=== PATIENT | male | born 1990 | race African-American/Black ===

== ENCOUNTER 2016-05-29 13:27 | Emergency (ER) | payer OTHER ==
[2016-05-29] MEDS ORDERED: GASTROGRAFIN SOLUTION 30ML (Q9963) As Ordered ONE (14:32)
[2016-05-29 14:38] LABS: BASO % 0.3 % (0.0-1.0); EOS # 0.4 K/mm3 (0.0-0.50); EOS % 6.4 % (0.0-3.0); LARGE UNSTAINED CELL # 0.1 K/mm3 (0.0-0.4); LARGE UNSTAINED CELL % 1.4 % (0.0-4.0); LYMPH # 1.8 K/mm3 (1.5-6.5); LYMPH % 31.3 % (24.0-44.0); MEAN CORPUSCULAR HGB CONC 34.4 g/dl (32.0-36.5); MEAN CORPUSCULAR VOLUME 78.5 fl (80.0-96.0); MONO # 0.3 K/mm3 (0.0-0.8); MONO % 5.8 % (0.0-5.0); NEUTROPHILS # 3.1 K/mm3 (1.8-7.7); NEUTROPHILS % 54.8 % (36.0-66.0); PLATELET COUNT, AUTOMATED 239 k/mm3 (150-450); RED CELL DISTRIBUTION WIDTH 13.8 % (11.5-14.5); WHITE BLOOD COUNT 5.6 K/mm3 (4.0-10.0)
[2016-05-29 15:00] LABS: ALBUMIN 4.3 GM/DL (3.2-5.2); ALBUMIN/GLOBULIN RATIO 1.13 (1.00-1.93); ALKALINE PHOSPHATASE 111 U/L (45-117); ALT/SGPT 47 U/L (12-78); ANION GAP 8 MEQ/L (8-16); AST/SGOT 35 U/L (15-37); BILIRUBIN,DIRECT < 0.1 MG/DL (0.0-0.2); BILIRUBIN,TOTAL 0.5 MG/DL (0.2-1.0); BLOOD UREA NITROGEN 12 MG/DL (7-18); CARBON DIOXIDE LEVEL 30 MEQ/L (21-32); CHLORIDE LEVEL 103 MEQ/L (98-107); CREATININE FOR GFR 1.19 MG/DL (0.70-1.30); GLOMERULAR FILTRATION RATE > 60.0 (>60); GLUCOSE, FASTING 88 MG/DL (70-105); POTASSIUM SERUM 3.7 MEQ/L (3.5-5.1); SODIUM LEVEL 141 MEQ/L (136-145); TOTAL PROTEIN 8.1 GM/DL (6.4-8.2)
[2016-05-29] MEDS ORDERED: ISOVUE-370 76% 100ML VIAL (Q9967) As Ordered ONE (15:26)
--- NOTE | 2016-05-29 16:10 | REP ---
Clinical: Right lower quadrant pain. Technique: Axial contrast enhanced images from the lung bases to the pubic symphysis using oral and 100 ml Isovue 370 intravenous contrast material with coronal and sagittal re-formations. Findings: Lung bases clear. Visualized heart and pericardium normal. Liver, spleen, pancreas, gallbladder, bilateral adrenal glands and kidneys are normal. The enteric system is without obstruction or acute inflammatory process. Normal terminal ileum and appendix identified in the right lower quadrant. Moderate fecal stasis cannot be excluded. Pelvis demonstrates normal bladder and age appropriate prostate/seminal vesicles. No ascites. No free air. No adenopathy. Abdominal aorta without aneurysm. Surrounding musculoskeletal structures intact. Impression: Possible mild fecal stasis. Normal appendix. No free fluid. No acute intra-abdominal or pelvic pathology appreciated. Signed by Skip Moraes MD 05/29/2016 04:02 P
--- NOTE | 2016-05-29 16:19 | EDDOCDS ---
Physician Documentation [facility] Name: Ace Tran Age: 25 yrs Sex: Male : 1990 Arrival Date: 05/29/2016 Time: 13:27 Bed I1 / M1 Private MD: YSABEL Barton Disposition: 05/29/16 16:09 Discharged to Home/Self Care. Impression: Lower abdominal pain, unspecified - RLQ, Nausea with vomiting, unspecified, Diarrhea, unspecified, Acute upper respiratory infection, unspecified. - Condition is Stable. - Discharge Instructions: Abdominal Pain, Adult, Diarrhea, Nausea and Vomiting, Upper Respiratory Infection, Adult. - Prescriptions for Reglan 10 mg Oral Tablet - take 1 tablet by ORAL route every 6 hours As needed take 30 minutes before meals and at bedtime; 30 tablet. - Medication Reconciliation, Local Pharmacy Hours form. - Follow up: Emergency Department; When: As needed; Reason: Worsening of conditions. Follow up: YSABEL Barton; When: 2 - 3 days; Reason: Wound/Symptom Recheck, Recheck today's complaints, Continuance of care. - Problem is new. - Symptoms have improved. Historical: - Allergies: no known allergies; - Home Meds: 1. Zofran (as hydrochloride) 4 mg Oral tab 3 times per day (Last dose: 05/27/2016) - PMHx: none; - PSHx: none; - Social history: Smoking status: Patient states was never smoker of tobacco. No barriers to communication noted, The patient speaks fluent Uzbek. - Family history: Not pertinent. - : The pt / caregiver states he / she is not on anticoagulants. Home medication list is obtained from the patient. - Exposure Risk Screening:: None identified. Vital Signs: 05/29 13:31 BP 144 / 72; Pulse 92; Resp 18; Temp 98.3; Pulse Ox 99% ; Weight 98.43 kg / 217 lbs; elp Height 6 ft. 3 in. (190.50 cm); 16:16 BP 136 / 77; Pulse 80; Resp 16; Temp 97.3; jmk 13:31 Body Mass Index 27.12 (98.43 kg, 190.50 cm) elp MDM: 14:08 Obtain sample by nasopharyngeal swab ordered. dt4 14:08 NS 0.9% 1000 ml IV at bolus once ordered. dt4 14:08 IV Saline Lock ordered. dt4 14:08 Undress patient appropriately for examination ordered. dt4 14:08 Metoclopramide 20 mg IV at 80 mg/hr once over 15 mins ordered. dt4 14:08 -Influenza A&B Rapid Antigen - Nose Ordered. EDMS 14:08 Basic Metabolic Profile Ordered. EDMS 14:08 CBC with Diff Ordered. EDMS 14:08 Lipase Ordered. EDMS 14:08 Liver Profile Ordered. EDMS 14:08 CT ABD & PELVIS: IV and Oral Contrast Ordered. EDMS 14:09 NOTHING BY MOUTH+DIET ordered. EDMS 14:15 Financial registration complete. lg 14:25 [facility] Payment Agreement was scanned into Mob[employer] and attached to record. lg 14:39 Diatrizoate Meglumine & Sodium Liquid 10 ml PO once; mix in 290cc of water ordered. jmk Administered Medications: 14:36 Drug: NS 0.9% 1000 ml Route: IV; Rate: bolus; Site: right antecubital; k 14:36 Drug: Metoclopramide 20 mg [metoclopramide 5 mg/mL injection solution] Route: IV; Rate: jmk 80 mg/hr; Infused Over: 15 mins; Site: right antecubital; 14:39 Drug: Diatrizoate Meglumine & Sodium 10 ml [diatrizoate meglumine and diat.sodium 66 jmk %-10 % oral solution (10 mL)] Route: PO; Signatures: Dispatcher [employer] EDOR Wyatt Dos Santos RN RN jmk Peters, Mary, RN RN mcp Ganter, LoriLee, Reg Reg lg Eusebia Couch PA-C PA-C dt4 The chart was reviewed and I authenticate all verbal orders and agree with the evaluation and treatment provided.Attachments: 14:25 [facility] Payment Agreement lg MTDD
--- NOTE | 2016-05-29 16:20 | EDDOCDS ---
Nurse's Notes [facility] Name: Ace Tran Age: 25 yrs Sex: Male : 1990 Arrival Date: 05/29/2016 Time: 13:27 Bed I1 / M1 Private MD: YSABEL Barton Diagnosis: Lower abdominal pain, unspecified-RLQ;Nausea with vomiting, unspecified;Diarrhea, unspecified;Acute upper respiratory infection, unspecified Presentation: 05/29 13:38 Presenting complaint: Patient states: Sick since last week--vomiting, diarrhea, nausea. [facility] Adult Sepsis Screening: The patient does not have new or worsening altered mentation. Patient's respiratory rate is less than 22. Systolic blood pressure is greater than 100. Patient has a qSOFA score of 0- Negative Sepsis Screen. Suicide/Homicide risk assessment- the patient denies having any suicidal and/or homicidal ideations and does not present with any other emotional, behavioral or mental health complaints. Status: The patient is an active duty route service manager. Transition of care: patient was not received from another setting of care. 13:38 Acuity: WILLIAM Level 4 [facility] 13:38 Method Of Arrival: Walkin/Carried/Asstd [facility] Triage Assessment: 13:40 General: Appears ill, Behavior is cooperative. Pain: Denies pain. HIV screening NA for [facility] this visit Offered previously. Neurological: No deficits noted. Respiratory: Airway is patent Respiratory effort is even, unlabored. GI: Reports diarrhea, nausea, vomiting. Derm: Skin is pink, warm & dry. Historical: - Allergies: no known allergies; - Home Meds: 1. Zofran (as hydrochloride) 4 mg Oral tab 3 times per day (Last dose: 05/27/2016) - PMHx: none; - PSHx: none; - Social history: Smoking status: Patient states was never smoker of tobacco. No barriers to communication noted, The patient speaks fluent Vietnamese. - Family history: Not pertinent. - : The pt / caregiver states he / she is not on anticoagulants. Home medication list is obtained from the patient. - Exposure Risk Screening:: None identified. Screenin:37 Screening information is obtained from the patient. Fall risk: No risks identified. jmk Assistance ADL's: requires no assistance with activities of daily living. Abuse/DV Screen: The patient / caregiver reports he/she is: not in a situation that causes fear, pain or injury. Nutritional screening: No deficits noted. Advance Directives: Currently, there is no health care proxy. There is no active DNR order. There is no living will. There is no Power of Hostess Host. Advance directive information has not previously been placed in an [facility] medical record. home support is adequate. Assessment: 14:37 General: Appears in no apparent distress. Cardiovascular: No deficits noted. Capillary jmk refill < 3 seconds. Respiratory: No deficits noted. Airway is patent Respiratory effort is even, unlabored, Respiratory pattern is regular, Breath sounds are clear. GI: Abdomen is flat, non- distended Bowel sounds present X 4 quads. Abd is soft and non tender X 4 quads. without increased pain with palp. diffusely tender. 16:16 General: Appears without vomiting since arrival . has accommodated oral contrast jmk without difficulty. receptive to discharge. Vital Signs: 13:31 BP 144 / 72; Pulse 92; Resp 18; Temp 98.3; Pulse Ox 99% ; Weight 98.43 kg; Height 6 ft. elp 3 in. (190.50 cm); 16:16 BP 136 / 77; Pulse 80; Resp 16; Temp 97.3; jmk 13:31 Body Mass Index 27.12 (98.43 kg, 190.50 cm) [facility] Vitals: 13:31 Log In Time: May 29, 2016 at 13:27. [facility] ED Course: 13:31 Patient visited by Yana Mullen PCA. elp 13:31 Oralia Sonia is Private Physician. elp 13:31 Patient visited by Yana Mullen PCA. elp 13:31 Patient moved to Waiting elp 13:32 Patient moved to Pre RCE elp 13:39 Triage Initiated mcp 13:40 Patient visited by Sarika Malcolm RN. mcp 13:42 Patient moved to Triage 1 mcp 13:45 [facility] dt4 13:45 Mai Mims MD is Attending Physician. dt4 13:45 Patient visited by Eusebia Couch PA-C. dt4 14:07 Patient moved to I1 / M1 [facility] 14:24 Patient name changed from Gnosticist\S\\S\Chelsea\S\ to Gnosticist\S\ \S\Chelsea. EDMS 14:25 [facility] Payment Agreement was scanned into [employer] and attached to record. lg 14:37 The patient / caregiver is instructed regarding the plan of care and ED course. jmk 14:37 Inserted saline lock: 20 gauge in right antecubital area. jmk 14:41 Patient visited by Carlota Trejo RN. ms18 15:43 Patient visited by Jojo Blandon. nb2 16:08 Oralia [facility] is Referral Physician. dt4 16:16 Discontinued lock intact, bleeding controlled, pressure dressing applied, No jmk redness/swelling at site. No procedures done that require assistance. Administered Medications: 14:36 Drug: NS 0.9% 1000 ml Route: IV; Rate: bolus; Site: right antecubital; jmk 14:36 Drug: Metoclopramide 20 mg [metoclopramide 5 mg/mL injection solution] Route: IV; Rate: jmk 80 mg/hr; Infused Over: 15 mins; Site: right antecubital; 14:39 Drug: Diatrizoate Meglumine & Sodium 10 ml [diatrizoate meglumine and diat.sodium 66 jmk %-10 % oral solution (10 mL)] Route: PO; Intake: 16:16 IV: 1000.00ml (NS); Total: 1000.00ml. jmk Order Results: Lab Order: -Influenza A&B Rapid Antigen - Nose; SPEC'M 05/29/16 14:18 Test: INFLUENZA A RAPID SCR by ICA; Value: INFLUENZA A RESULTS NEGATIVE; Status: F Test: INFLUENZA A RAPID SCR by ICA; Value: Comments:; Status: F Test: INFLUENZA B RAPID SCR by ICA; Value: INFLUENZA B RESULTS NEGATIVE; Status: F Test Note: ; The Influenza test is a direct rapid immunoassay for the qualitative detection of Influenza viral antigen. Cell culture (Viral Culture) testing should be considered to confirm NEGATIVE results and to assist in detecting other viruses that can provide similar clinical symptoms. Please contact the lab within 24 hours ([phone]) if confirmatory testing is desired. Lab Order: Basic Metabolic Profile; SPEC'M 05/29/16 14:18 Test: GLUCOSE, FASTING; Value: 88; Range: 70-105; Units: MG/DL; Status: F Test: BLOOD UREA NITROGEN; Value: 12; Range: 7-18; Units: MG/DL; Status: F Test: CREATININE FOR GFR; Value: 1.19; Range: 0.70-1.30; Units: MG/DL; Status: F Test: GLOMERULAR FILTRATION RATE; Value: > 60.0; Range: >60; Status: F Test: SODIUM LEVEL; Value: 141; Range: 136-145; Units: MEQ/L; Status: F Test: POTASSIUM SERUM; Value: 3.7; Range: 3.5-5.1; Units: MEQ/L; Status: F Test: CHLORIDE LEVEL; Value: 103; Range: 98-107; Units: MEQ/L; Status: F Test: CARBON DIOXIDE LEVEL; Value: 30; Range: 21-32; Units: MEQ/L; Status: F Test: ANION GAP; Value: 8; Range: 8-16; Units: MEQ/L; Status: F Test: CALCIUM LEVEL; Value: 9.0; Range: 8.5-10.1; Units: MG/DL; Status: F Test Note: ; Units are mL/min/1.73 m2 Chronic Kidney Disease Staging per NKF: Stage I & II GFR >=60 Normal to Mildly Decreased Stage III GFR 30-59 Moderately Decreased Stage IV GFR 15-29 Severely Decreased Stage V GFR <15 Very Little GFR Left ESRD GFR <15 on OIL G[employer] PIPE TESTER Lab Order: CBC with Diff; SPEC'M 05/29/16 14:18 Test: WHITE BLOOD COUNT; Value: 5.6; Range: 4.0-10.0; Units: K/mm3; Status: F Test: RED BLOOD COUNT; Value: 5.37; Range: 4.30-6.10; Units: M/mm3; Status: F Test: HEMOGLOBIN; Value: 14.5; Range: 14.0-18.0; Units: g/dl; Status: F Test: HEMATOCRIT; Value: 42.2; Range: 42.0-52.0; Units: %; Status: F Test: MEAN CORPUSCULAR VOLUME; Value: 78.5; Range: 80.0-96.0; Abnormal: Below low normal; Units: fl; Status: F Test: MEAN CORPUSCULAR HEMOGLOBIN; Value: 27.0; Range: 27.0-33.0; Units: pg; Status: F Test: MEAN CORPUSCULAR HGB CONC; Value: 34.4; Range: 32.0-36.5; Units: g/dl; Status: F Test: RED CELL DISTRIBUTION WIDTH; Value: 13.8; Range: 11.5-14.5; Units: %; Status: F Test: PLATELET COUNT, AUTOMATED; Value: 239; Range: 150-450; Units: k/mm3; Status: F Test: NEUTROPHILS %; Value: 54.8; Range: 36.0-66.0; Units: %; Status: F Test: LYMPH %; Value: 31.3; Range: 24.0-44.0; Units: %; Status: F Test: MONO %; Value: 5.8; Range: 0.0-5.0; Abnormal: Above high normal; Units: %; Status: F Test: EOS %; Value: 6.4; Range: 0.0-3.0; Abnormal: Above high normal; Units: %; Status: F Test: BASO %; Value: 0.3; Range: 0.0-1.0; Units: %; Status: F Test: LARGE UNSTAINED CELL %; Value: 1.4; Range: 0.0-4.0; Units: %; Status: F Test: NEUTROPHILS #; Value: 3.1; Range: 1.8-7.7; Units: K/mm3; Status: F Test: LYMPH #; Value: 1.8; Range: 1.5-6.5; Units: K/mm3; Status: F Test: MONO #; Value: 0.3; Range: 0.0-0.8; Units: K/mm3; Status: F Test: EOS #; Value: 0.4; Range: 0.0-0.50; Units: K/mm3; Status: F Test: BASO #; Value: 0.0; Range: 0.0-0.2; Units: K/mm3; Status: F Test: LARGE UNSTAINED CELL #; Value: 0.1; Range: 0.0-0.4; Units: K/mm3; Status: F Lab Order: Lipase; SPEC'M 05/29/16 14:18 Test: LIPASE; Value: 92; Range: 73-393; Units: U/L; Status: F Lab Order: Liver Profile; SPEC'M 05/29/16 14:18 Test: AST/SGOT; Value: 35; Range: 15-37; Units: U/L; Status: F Test: ALT/SGPT; Value: 47; Range: 12-78; Units: U/L; Status: F Test: ALKALINE PHOSPHATASE; Value: 111; Range: 45-117; Units: U/L; Status: F Test: BILIRUBIN,TOTAL; Value: 0.5; Range: 0.2-1.0; Units: MG/DL; Status: F Test: BILIRUBIN,DIRECT; Value: < 0.1; Range: 0.0-0.2; Units: MG/DL; Status: F Test: TOTAL PROTEIN; Value: 8.1; Range: 6.4-8.2; Units: GM/DL; Status: F Test: ALBUMIN; Value: 4.3; Range: 3.2-5.2; Units: GM/DL; Status: F Test: ALBUMIN/GLOBULIN RATIO; Value: 1.13; Range: 1.00-1.93; Status: F Outcome: 16:09 Discharge ordered by Provider. dt4 16:16 Discharge Assessment: Patient awake, alert and oriented x 3. No cognitive and/or k functional deficits noted. Patient verbalized understanding of disposition instructions. patient administered narcotics - no. The following High Risk Discharge criteria are identified: None. Discharged to home ambulatory. Condition: good. Discharge instructions given to patient, Instructed on discharge instructions, follow up and referral plans. medication usage, Demonstrated understanding of instructions, medications, Pt was receptive of discharge instructions/ teaching. CT Study completed. Property :Personal belongings accompany Pt. 16:18 Patient left the ED. anahy Signatures: Dispatcher [employer] EDWyatt Randall RN RN jmk Peters, Mary, RN RN mcp Ganter, LoriLee, Catalino Reg lg Yana Mullen, DAVON NET WPF DEVELOPER Eusebia Guzman, PA-C PA-C dt4 Carlota Trejo RN RN ms18 Jojo Blandon2 MTDD
--- NOTE | 2016-05-31 17:19 | EDDOCDS ---
Physician Documentation [facility] Name: Ace Tran Age: 25 yrs Sex: Male : 1990 Arrival Date: 05/29/2016 Time: 13:27 Bed I1 / M1 Private MD: YSABEL Barton Disposition: 05/29/16 16:09 Discharged to Home/Self Care. Impression: Lower abdominal pain, unspecified - RLQ, Nausea with vomiting, unspecified, Diarrhea, unspecified, Acute upper respiratory infection, unspecified. - Condition is Stable. - Discharge Instructions: Abdominal Pain, Adult, Diarrhea, Nausea and Vomiting, Upper Respiratory Infection, Adult. - Prescriptions for Reglan 10 mg Oral Tablet - take 1 tablet by ORAL route every 6 hours As needed take 30 minutes before meals and at bedtime; 30 tablet. - Medication Reconciliation, Local Pharmacy Hours form. - Follow up: Emergency Department; When: As needed; Reason: Worsening of conditions. Follow up: YSABEL Barton; When: 2 - 3 days; Reason: Wound/Symptom Recheck, Recheck today's complaints, Continuance of care. - Problem is new. - Symptoms have improved. Historical: - Allergies: no known allergies; - Home Meds: 1. Zofran (as hydrochloride) 4 mg Oral tab 3 times per day (Last dose: 05/27/2016) - PMHx: none; - PSHx: none; - Social history: Smoking status: Patient states was never smoker of tobacco. No barriers to communication noted, The patient speaks fluent Pashto. - Family history: Not pertinent. - : The pt / caregiver states he / she is not on anticoagulants. Home medication list is obtained from the patient. - Exposure Risk Screening:: None identified. Vital Signs: 05/29 13:31 BP 144 / 72; Pulse 92; Resp 18; Temp 98.3; Pulse Ox 99% ; Weight 98.43 kg / 217 lbs; elp Height 6 ft. 3 in. (190.50 cm); 16:16 BP 136 / 77; Pulse 80; Resp 16; Temp 97.3; jmk 13:31 Body Mass Index 27.12 (98.43 kg, 190.50 cm) elp MDM: 14:08 Obtain sample by nasopharyngeal swab ordered. dt4 14:08 NS 0.9% 1000 ml IV at bolus once ordered. dt4 14:08 IV Saline Lock ordered. dt4 14:08 Undress patient appropriately for examination ordered. dt4 14:08 Metoclopramide 20 mg IV at 80 mg/hr once over 15 mins ordered. dt4 14:08 -Influenza A&B Rapid Antigen - Nose Ordered. EDMS 14:08 Basic Metabolic Profile Ordered. EDMS 14:08 CBC with Diff Ordered. EDMS 14:08 Lipase Ordered. EDMS 14:08 Liver Profile Ordered. EDMS 14:08 CT ABD & PELVIS: IV and Oral Contrast Ordered. EDMS 14:09 NOTHING BY MOUTH+DIET ordered. EDMS 14:15 Financial registration complete. 14:25 [facility] Payment Agreement was scanned into [employer] and attached to record. 14:39 Diatrizoate Meglumine & Sodium Liquid 10 ml PO once; mix in 290cc of water ordered. [facility] 05/30 17:41 T-Sheet-- Draft Copy was scanned into Cy[employer] and attached to record. klr Administered Medications: 05/29 14:36 Drug: NS 0.9% 1000 ml Route: IV; Rate: bolus; Site: right antecubital; jmk 14:36 Drug: Metoclopramide 20 mg [metoclopramide 5 mg/mL injection solution] Route: IV; Rate: jmk 80 mg/hr; Infused Over: 15 mins; Site: right antecubital; 14:39 Drug: Diatrizoate Meglumine & Sodium 10 ml [diatrizoate meglumine and diat.sodium 66 jmk %-10 % oral solution (10 mL)] Route: PO; Signatures: Dispatcher [facility] Wyatt Dos Santos RN RN jmk Peters, Mary, RN RN mcp Ganter, LoriLee, Catalino Reg Eusebia Couch PA-C PA-C dt4 Elaine Lanza The chart was reviewed and I authenticate all verbal orders and agree with the evaluation and treatment provided.Attachments: 14:25 [facility] Payment Agreement 05/30 17:41 T-Sheet-- Draft Copy klr Chart Complete MTDD
--- NOTE | 2016-05-31 17:19 | EDDOCDS ---
Physician Documentation [facility] Name: Ace Tran Age: 25 yrs Sex: Male : 1990 Arrival Date: 05/29/2016 Time: 13:27 Bed I1 / M1 Private MD: YSABEL Barton Disposition: 05/29/16 16:09 Discharged to Home/Self Care. Impression: Lower abdominal pain, unspecified - RLQ, Nausea with vomiting, unspecified, Diarrhea, unspecified, Acute upper respiratory infection, unspecified. - Condition is Stable. - Discharge Instructions: Abdominal Pain, Adult, Diarrhea, Nausea and Vomiting, Upper Respiratory Infection, Adult. - Prescriptions for Reglan 10 mg Oral Tablet - take 1 tablet by ORAL route every 6 hours As needed take 30 minutes before meals and at bedtime; 30 tablet. - Medication Reconciliation, Local Pharmacy Hours form. - Follow up: Emergency Department; When: As needed; Reason: Worsening of conditions. Follow up: YSABEL Barton; When: 2 - 3 days; Reason: Wound/Symptom Recheck, Recheck today's complaints, Continuance of care. - Problem is new. - Symptoms have improved. Historical: - Allergies: no known allergies; - Home Meds: 1. Zofran (as hydrochloride) 4 mg Oral tab 3 times per day (Last dose: 05/27/2016) - PMHx: none; - PSHx: none; - Social history: Smoking status: Patient states was never smoker of tobacco. No barriers to communication noted, The patient speaks fluent Uzbek. - Family history: Not pertinent. - : The pt / caregiver states he / she is not on anticoagulants. Home medication list is obtained from the patient. - Exposure Risk Screening:: None identified. Vital Signs: 05/29 13:31 BP 144 / 72; Pulse 92; Resp 18; Temp 98.3; Pulse Ox 99% ; Weight 98.43 kg / 217 lbs; elp Height 6 ft. 3 in. (190.50 cm); 16:16 BP 136 / 77; Pulse 80; Resp 16; Temp 97.3; jmk 13:31 Body Mass Index 27.12 (98.43 kg, 190.50 cm) elp MDM: 14:08 Obtain sample by nasopharyngeal swab ordered. dt4 14:08 NS 0.9% 1000 ml IV at bolus once ordered. dt4 14:08 IV Saline Lock ordered. dt4 14:08 Undress patient appropriately for examination ordered. dt4 14:08 Metoclopramide 20 mg IV at 80 mg/hr once over 15 mins ordered. dt4 14:08 -Influenza A&B Rapid Antigen - Nose Ordered. EDMS 14:08 Basic Metabolic Profile Ordered. EDMS 14:08 CBC with Diff Ordered. EDMS 14:08 Lipase Ordered. EDMS 14:08 Liver Profile Ordered. EDMS 14:08 CT ABD & PELVIS: IV and Oral Contrast Ordered. EDMS 14:09 NOTHING BY MOUTH+DIET ordered. EDMS 14:15 Financial registration complete. 14:25 [facility] Payment Agreement was scanned into [employer] and attached to record. 14:39 Diatrizoate Meglumine & Sodium Liquid 10 ml PO once; mix in 290cc of water ordered. [facility] 05/30 17:41 T-Sheet-- Draft Copy was scanned into [employer] and attached to record. klr Administered Medications: 05/29 14:36 Drug: NS 0.9% 1000 ml Route: IV; Rate: bolus; Site: right antecubital; jmk 14:36 Drug: Metoclopramide 20 mg [metoclopramide 5 mg/mL injection solution] Route: IV; Rate: jmk 80 mg/hr; Infused Over: 15 mins; Site: right antecubital; 14:39 Drug: Diatrizoate Meglumine & Sodium 10 ml [diatrizoate meglumine and diat.sodium 66 jmk %-10 % oral solution (10 mL)] Route: PO; Signatures: Dispatcher [facility] Wyatt Dos Santos RN RN jmk Peters, Mary, RN RN mcp Ganter, LoriLee, Catalino Reg Eusebia Couch PA-C PA-C dt4 Elaine Lanza The chart was reviewed and I authenticate all verbal orders and agree with the evaluation and treatment provided.Attachments: 14:25 [facility] Payment Agreement 05/30 17:41 T-Sheet-- Draft Copy klr Chart Complete MTDD
--- NOTE | 2016-05-31 17:20 | EDDOCDS ---
Nurse's Notes [facility] Name: Ace Tran Age: 25 yrs Sex: Male : 1990 Arrival Date: 05/29/2016 Time: 13:27 Bed I1 / M1 Private MD: YSABEL Barton Diagnosis: Lower abdominal pain, unspecified-RLQ;Nausea with vomiting, unspecified;Diarrhea, unspecified;Acute upper respiratory infection, unspecified Presentation: 05/29 13:38 Presenting complaint: Patient states: Sick since last week--vomiting, diarrhea, nausea. [facility] Adult Sepsis Screening: The patient does not have new or worsening altered mentation. Patient's respiratory rate is less than 22. Systolic blood pressure is greater than 100. Patient has a qSOFA score of 0- Negative Sepsis Screen. Suicide/Homicide risk assessment- the patient denies having any suicidal and/or homicidal ideations and does not present with any other emotional, behavioral or mental health complaints. Status: The patient is an active duty creative services designer. Transition of care: patient was not received from another setting of care. 13:38 Acuity: WILLIAM Level 4 [facility] 13:38 Method Of Arrival: Walkin/Carried/Asstd [facility] Triage Assessment: 13:40 General: Appears ill, Behavior is cooperative. Pain: Denies pain. HIV screening NA for [facility] this visit Offered previously. Neurological: No deficits noted. Respiratory: Airway is patent Respiratory effort is even, unlabored. GI: Reports diarrhea, nausea, vomiting. Derm: Skin is pink, warm & dry. Historical: - Allergies: no known allergies; - Home Meds: 1. Zofran (as hydrochloride) 4 mg Oral tab 3 times per day (Last dose: 05/27/2016) - PMHx: none; - PSHx: none; - Social history: Smoking status: Patient states was never smoker of tobacco. No barriers to communication noted, The patient speaks fluent Nepali. - Family history: Not pertinent. - : The pt / caregiver states he / she is not on anticoagulants. Home medication list is obtained from the patient. - Exposure Risk Screening:: None identified. Screenin:37 Screening information is obtained from the patient. Fall risk: No risks identified. jmk Assistance ADL's: requires no assistance with activities of daily living. Abuse/DV Screen: The patient / caregiver reports he/she is: not in a situation that causes fear, pain or injury. Nutritional screening: No deficits noted. Advance Directives: Currently, there is no health care proxy. There is no active DNR order. There is no living will. There is no Power of Beverage Distiller. Advance directive information has not previously been placed in an [facility] medical record. home support is adequate. Assessment: 14:37 General: Appears in no apparent distress. Cardiovascular: No deficits noted. Capillary jmk refill < 3 seconds. Respiratory: No deficits noted. Airway is patent Respiratory effort is even, unlabored, Respiratory pattern is regular, Breath sounds are clear. GI: Abdomen is flat, non- distended Bowel sounds present X 4 quads. Abd is soft and non tender X 4 quads. without increased pain with palp. diffusely tender. 16:16 General: Appears without vomiting since arrival . has accommodated oral contrast jmk without difficulty. receptive to discharge. Vital Signs: 13:31 BP 144 / 72; Pulse 92; Resp 18; Temp 98.3; Pulse Ox 99% ; Weight 98.43 kg; Height 6 ft. elp 3 in. (190.50 cm); 16:16 BP 136 / 77; Pulse 80; Resp 16; Temp 97.3; jmk 13:31 Body Mass Index 27.12 (98.43 kg, 190.50 cm) [facility] Vitals: 13:31 Log In Time: May 29, 2016 at 13:27. [facility] ED Course: 13:31 Patient visited by Yana Mullen PCA. elp 13:31 Oralia Sonia is Private Physician. elp 13:31 Patient visited by Yana Mullen PCA. elp 13:31 Patient moved to Waiting elp 13:32 Patient moved to Pre RCE elp 13:39 Triage Initiated mcp 13:40 Patient visited by Sarika Malcolm RN. mcp 13:42 Patient moved to Triage 1 mcp 13:45 [facility] dt4 13:45 Mai Mims MD is Attending Physician. dt4 13:45 Patient visited by Eusebia Couch PA-C. dt4 14:07 Patient moved to I1 / M1 [facility] 14:24 Patient name changed from Worship\S\\S\Chelsea\S\ to Worship\S\ \S\Hcelsea. EDMS 14:25 [facility] Payment Agreement was scanned into [employer] and attached to record. lg 14:37 The patient / caregiver is instructed regarding the plan of care and ED course. jmk 14:37 Inserted saline lock: 20 gauge in right antecubital area. jmk 14:41 Patient visited by Carlota Trejo RN. ms18 15:43 Patient visited by Jojo Blandon. nb2 16:08 Oralia [facility] is Referral Physician. dt4 16:16 Discontinued lock intact, bleeding controlled, pressure dressing applied, No jmk redness/swelling at site. No procedures done that require assistance. 16:33 CT ABD & PELVIS: IV and Oral Contrast Returned. EDMS 02 17:41 T-Sheet-- Draft Copy was scanned into [employer] and attached to record. klr Administered Medications: 05/29 14:36 Drug: NS 0.9% 1000 ml Route: IV; Rate: bolus; Site: right antecubital; jmk 14:36 Drug: Metoclopramide 20 mg [metoclopramide 5 mg/mL injection solution] Route: IV; Rate: jmk 80 mg/hr; Infused Over: 15 mins; Site: right antecubital; 14:39 Drug: Diatrizoate Meglumine & Sodium 10 ml [diatrizoate meglumine and diat.sodium 66 jmk %-10 % oral solution (10 mL)] Route: PO; Intake: 16:16 IV: 1000.00ml (NS); Total: 1000.00ml. [facility] Order Results: Lab Order: -Influenza A&B Rapid Antigen - Nose; SPEC'M 05/29/16 14:18 Test: INFLUENZA A RAPID SCR by ICA; Value: INFLUENZA A RESULTS NEGATIVE; Status: F Test: INFLUENZA A RAPID SCR by ICA; Value: Comments:; Status: F Test: INFLUENZA B RAPID SCR by ICA; Value: INFLUENZA B RESULTS NEGATIVE; Status: F Test Note: ; The Influenza test is a direct rapid immunoassay for the qualitative detection of Influenza viral antigen. Cell culture (Viral Culture) testing should be considered to confirm NEGATIVE results and to assist in detecting other viruses that can provide similar clinical symptoms. Please contact the lab within 24 hours ([phone] if confirmatory testing is desired. Lab Order: Basic Metabolic Profile; SPEC'M 05/29/16 14:18 Test: GLUCOSE, FASTING; Value: 88; Range: 70-105; Units: MG/DL; Status: F Test: BLOOD UREA NITROGEN; Value: 12; Range: 7-18; Units: MG/DL; Status: F Test: CREATININE FOR GFR; Value: 1.19; Range: 0.70-1.30; Units: MG/DL; Status: F Test: GLOMERULAR FILTRATION RATE; Value: > 60.0; Range: >60; Status: F Test: SODIUM LEVEL; Value: 141; Range: 136-145; Units: MEQ/L; Status: F Test: POTASSIUM SERUM; Value: 3.7; Range: 3.5-5.1; Units: MEQ/L; Status: F Test: CHLORIDE LEVEL; Value: 103; Range: 98-107; Units: MEQ/L; Status: F Test: CARBON DIOXIDE LEVEL; Value: 30; Range: 21-32; Units: MEQ/L; Status: F Test: ANION GAP; Value: 8; Range: 8-16; Units: MEQ/L; Status: F Test: CALCIUM LEVEL; Value: 9.0; Range: 8.5-10.1; Units: MG/DL; Status: F Test Note: ; Units are mL/min/1.73 m2 Chronic Kidney Disease Staging per NKF: Stage I & II GFR >=60 Normal to Mildly Decreased Stage III GFR 30-59 Moderately Decreased Stage IV GFR 15-29 Severely Decreased Stage V GFR <15 Very Little GFR Left ESRD GFR <15 on FLIGHT SURVEYOR Lab Order: CBC with Diff; SPEC'M 05/29/16 14:18 Test: WHITE BLOOD COUNT; Value: 5.6; Range: 4.0-10.0; Units: K/mm3; Status: F Test: RED BLOOD COUNT; Value: 5.37; Range: 4.30-6.10; Units: M/mm3; Status: F Test: HEMOGLOBIN; Value: 14.5; Range: 14.0-18.0; Units: g/dl; Status: F Test: HEMATOCRIT; Value: 42.2; Range: 42.0-52.0; Units: %; Status: F Test: MEAN CORPUSCULAR VOLUME; Value: 78.5; Range: 80.0-96.0; Abnormal: Below low normal; Units: fl; Status: F Test: MEAN CORPUSCULAR HEMOGLOBIN; Value: 27.0; Range: 27.0-33.0; Units: pg; Status: F Test: MEAN CORPUSCULAR HGB CONC; Value: 34.4; Range: 32.0-36.5; Units: g/dl; Status: F Test: RED CELL DISTRIBUTION WIDTH; Value: 13.8; Range: 11.5-14.5; Units: %; Status: F Test: PLATELET COUNT, AUTOMATED; Value: 239; Range: 150-450; Units: k/mm3; Status: F Test: NEUTROPHILS %; Value: 54.8; Range: 36.0-66.0; Units: %; Status: F Test: LYMPH %; Value: 31.3; Range: 24.0-44.0; Units: %; Status: F Test: MONO %; Value: 5.8; Range: 0.0-5.0; Abnormal: Above high normal; Units: %; Status: F Test: EOS %; Value: 6.4; Range: 0.0-3.0; Abnormal: Above high normal; Units: %; Status: F Test: BASO %; Value: 0.3; Range: 0.0-1.0; Units: %; Status: F Test: LARGE UNSTAINED CELL %; Value: 1.4; Range: 0.0-4.0; Units: %; Status: F Test: NEUTROPHILS #; Value: 3.1; Range: 1.8-7.7; Units: K/mm3; Status: F Test: LYMPH #; Value: 1.8; Range: 1.5-6.5; Units: K/mm3; Status: F Test: MONO #; Value: 0.3; Range: 0.0-0.8; Units: K/mm3; Status: F Test: EOS #; Value: 0.4; Range: 0.0-0.50; Units: K/mm3; Status: F Test: BASO #; Value: 0.0; Range: 0.0-0.2; Units: K/mm3; Status: F Test: LARGE UNSTAINED CELL #; Value: 0.1; Range: 0.0-0.4; Units: K/mm3; Status: F Lab Order: Lipase; SPEC'M 05/29/16 14:18 Test: LIPASE; Value: 92; Range: 73-393; Units: U/L; Status: F Lab Order: Liver Profile; SPEC'M 05/29/16 14:18 Test: AST/SGOT; Value: 35; Range: 15-37; Units: U/L; Status: F Test: ALT/SGPT; Value: 47; Range: 12-78; Units: U/L; Status: F Test: ALKALINE PHOSPHATASE; Value: 111; Range: 45-117; Units: U/L; Status: F Test: BILIRUBIN,TOTAL; Value: 0.5; Range: 0.2-1.0; Units: MG/DL; Status: F Test: BILIRUBIN,DIRECT; Value: < 0.1; Range: 0.0-0.2; Units: MG/DL; Status: F Test: TOTAL PROTEIN; Value: 8.1; Range: 6.4-8.2; Units: GM/DL; Status: F Test: ALBUMIN; Value: 4.3; Range: 3.2-5.2; Units: GM/DL; Status: F Test: ALBUMIN/GLOBULIN RATIO; Value: 1.13; Range: 1.00-1.93; Status: F Radiology Order: CT ABD & PELVIS: IV and Oral Contrast Test: CT ABD & PELVIS: IV and Oral Contrast REASON FOR EXAMINATION: N/V/D;Appendicitis/RLQ Pain; Clinical: Right lower quadrant pain.; ; Technique: Axial contrast enhanced images from the lung bases to the pubic; symphysis using oral and 100 ml Isovue 370 intravenous contrast material with; coronal and sagittal re-formations.; ; Findings:; Lung bases clear. Visualized heart and pericardium normal.; ; Liver, spleen, pancreas, gallbladder, bilateral adrenal glands and kidneys are; normal. The enteric system is without obstruction or acute inflammatory process.; Normal terminal ileum and appendix identified in the right lower quadrant.; Moderate fecal stasis cannot be excluded. Pelvis demonstrates normal bladder and; age appropriate prostate/seminal vesicles. No ascites. No free air. No; adenopathy. Abdominal aorta without aneurysm. Surrounding musculoskeletal; structures intact.; ; Impression:; Possible mild fecal stasis.; Normal appendix.; No free fluid. No acute intra-abdominal or pelvic pathology appreciated.; ; ; Signed by; Skip Moraes MD 05/29/2016 04:02 P; Outcome: 16:09 Discharge ordered by Provider. dt4 16:16 Discharge Assessment: Patient awake, alert and oriented x 3. No cognitive and/or k functional deficits noted. Patient verbalized understanding of disposition instructions. patient administered narcotics - no. The following High Risk Discharge criteria are identified: None. Discharged to home ambulatory. Condition: good. Discharge instructions given to patient, Instructed on discharge instructions, follow up and referral plans. medication usage, Demonstrated understanding of instructions, medications, Pt was receptive of discharge instructions/ teaching. CT Study completed. Property :Personal belongings accompany Pt. 16:18 Patient left the ED. anahy Signatures: Dispatcher [employer] EDWyatt Randall,Sarika Narayan RN, RN RN mcp Ganter, LoriLee, Reg Reg lg Sebas, Yana, AUTOMATION/CONTROLS MANAGER AUTOMATION/CONTROLS MANAGER elp Eusebia Couch, PA-C PA-C dt4 Carlota Trejo RN RN ms18 Elaine Lanza Nicole nb2 Chart Complete KUSHAL
== END 2016-05-29 16:18 | disposition home or self-care (01) ==
LOC: M ED 13:27
DX: R11.2 Nausea with vomiting, unspecified (principal); R19.7 Diarrhea, unspecified; R10.31 Right lower quadrant pain; J06.9 Acute upper respiratory infection, unspecified; Z79.899 Other long term (current) drug therapy
CPT/HCPCS: 36415; 74177; 80048; 80076; 83690; 85025; 87804; 96374; 99284; Q9963; Q9967